=== PATIENT | female | born 2000 | race Caucasian/White ===

== ENCOUNTER 2023-02-17 05:55 | Emergency (ER) | payer BC ==
[~2023-02-17] VITALS: Ht 170.2 cm; Wt 104.3 kg
[2023-02-17 06:08] VITALS: BP_SYST 116
[2023-02-17] MEDS ORDERED: ONDANSETRON 4 MG ODT TAB PO ONE (06:30)
[2023-02-17] MEDS ORDERED: ONDANSETRON 4 MG ODT TAB ONE (06:32)
[2023-02-17] MEDS ORDERED: ONDA-8 TL (06:37)
[2023-02-17 07:06] VITALS: BP_SYST 128
== END 2023-02-17 07:07 | disposition home or self-care (01) ==
LOC: SED 05:55
DX: A05.9 Bacterial foodborne intoxication, unspecified (principal); R11.10 Vomiting, unspecified; R19.7 Diarrhea, unspecified; R10.84 Generalized abdominal pain; Z79.899 Other long term (current) drug therapy
CPT/HCPCS: 99283; Q0162

== ENCOUNTER 2023-04-28 22:16 | Emergency (ER) | payer BC ==
[~2023-04-28] VITALS: Ht 170.2 cm; Wt 99.8 kg
[~2023-04-28 22:16] MED LIST: ONDA-8 TL
[2023-04-28 22:23] VITALS: BP_SYST 148
--- NOTE | 2023-04-28 22:27 | NUR ---
ER Dr. Dumont at bedside examining patient.
[2023-04-28] MEDS ORDERED: DEXAMETHASONE SOD PHOSPHATE 10 MG/ML VIAL PO ONE (22:30)
[2023-04-28] MEDS ORDERED: IBUPROFEN 600 MG TABLET PO ONE (22:30)
--- NOTE | 2023-04-28 22:30 | NUR ---
Patient to ER bed 07 to gown for evaluation. Side rails up. Report given to DARVIN MCKEON.
--- NOTE | 2023-04-28 22:35 | NUR ---
Pt bib self from home, ambulated from to bed 8. Pt c/o fever x2 days, congestion beginning today. Pt states she is having difficulty swallowing. Pt rates throat pain 7/10. Pt c/o of dry cough and vomited yesterday. Pt denies diarrhea. Pt denies taking COVID home test. Pt states she took dayquil around 2100. Safety precautions in place.
[2023-04-29 00:07] LABS: STREPTOCOCCUS A SCREEN (RAPID) NEGATIVE (NEGATIVE)
[2023-04-29] MEDS ORDERED: GUAI-723 PO (00:26)
[2023-04-29] MEDS ORDERED: BENZ1LOZ73 PO (00:26)
[2023-04-29 00:43] VITALS: BP_SYST 105
--- NOTE | 2023-04-29 00:44 | NUR ---
Patient given written and verbal discharge instructions and verbalizes understanding. ER Dr Dumont discussed with patient the results and treatment provided. Patient in stable condition. ID arm band removed. Rx of Cepacol Sore Throat Lozenge, Mucinex given. Patient educated on pain management and to follow up with PMD. Pain Scale 2/10. Opportunity for questions provided and answered. Medication side effect fact sheet provided.
== END 2023-04-29 00:42 | disposition home or self-care (01) ==
LOC: SED 22:16
DX: B34.9 Viral infection, unspecified (principal); J02.9 Acute pharyngitis, unspecified; R05.9 Cough, unspecified; R09.81 Nasal congestion; J45.909 Unspecified asthma, uncomplicated; Z91.013 Allergy to seafood; Z79.899 Other long term (current) drug therapy; Z20.822 Contact with and (suspected) exposure to COVID-19
CPT/HCPCS: 99283; 87426; 86403; 36415; 87081; 87804 ×2; J1100

== ENCOUNTER 2023-05-07 04:05 | Emergency (ER) | payer BC ==
[~2023-05-07] VITALS: Ht 170.2 cm; Wt 103.9 kg
[~2023-05-07 04:05] MED LIST changes: +BENZ1LOZ73 PO; +GUAI-723 PO
[2023-05-07 04:08] VITALS: BP_SYST 121
[2023-05-07] MEDS ORDERED: MORPHINE 4 MG INJ. 4 MG/ML VIAL IVP ONE (04:30)
[2023-05-07] MEDS ORDERED: ONDANSETRON HCL 4 MG/2 ML VIAL IVP ONE (04:30)
[2023-05-07] MEDS ORDERED: NACL 0.9% 1,000 ML IV ONE (04:30)
[2023-05-07 04:58] LABS: BASOPHILS # (AUTO) 0.1 K/uL (0.0-0.2); BASOPHILS % (AUTO) 0.4 % (0.0-2.0); EOSINOPHILS # (AUTO) 0.3 K/uL (0.0-0.4); EOSINOPHILS % (AUTO) 2.1 % (0.0-4.0); HEMATOCRIT 37.8 % (36-48); HEMOGLOBIN 12.4 g/dL (12.0-16.0); LYMPHOCYTES # (AUTO) 3.4 K/uL (1.0-5.5); LYMPHOCYTES % (AUTO) 22.9 % (20.5-51.5); MEAN CORPUSCULAR HEMOGLOBIN 28 pg (27-31); MEAN CORPUSCULAR HGB CONC 33 % (32-36); MEAN CORPUSCULAR VOLUME 86 fL (79.0-98.0); MONOCYTES # (AUTO) 0.9 K/uL (0.0-1.0); MONOCYTES % (AUTO) 6.4 % (1.7-9.3); NEUTROPHILS % (AUTO) 68.2 % (40.0-70.0); PLATELET COUNT (AUTO) 395 K/uL (130-430); RED BLOOD CELL COUNT(AUTO) 4.42 MIL/uL (4.2-6.2); RED CELL DISTRIBUTION WIDTH 13.5 % (9.0-15.0); WHITE BLOOD COUNT (AUTO) 14.6 K/uL (4.8-10.8)
[2023-05-07 05:51] LABS: CALCIUM 8.6 mg/dL (8.4-11.0); CREATININE 0.86 mg/dL (0.55-1.30)
[2023-05-07 05:56] LABS: ALBUMIN 3.3 g/dL (3.4-4.8); TOTAL BILIRUBIN 0.2 mg/dL (0.0-1.0)
[2023-05-07 06:13] LABS: BILIRUBIN,URINE NEGATIVE (NEGATIVE); BLOOD, URINE 2+ (NEGATIVE); CLARITY/URINE CLOUDY (CLEAR); COLOR,URINE YELLOW (YELLOW); GLUCOSE,URINE NEGATIVE (NEGATIVE); KETONES,URINE NEGATIVE (NEGATIVE); LEUKOCYTE ESTERASE ,URINE 2+ (NEGATIVE); NITRITE, URINE NEGATIVE (NEGATIVE); PROTEIN URINE 1+ (NEGATIVE); UROBILINOGEN,URINE 0.2 (0.2-1.0)
[2023-05-07] MEDS ORDERED: KETOROLAC TROMETHAMINE 30 MG VIAL IVP ONE (06:15)
[2023-05-07 06:40] LABS: BACTERIA,URINE FEW /HPF (None Seen); WBC,URINE 80-100 /HPF (0-3)
[2023-05-07] MEDS ORDERED: CEPH-548 PO (12:09)
[2023-05-07 12:24] VITALS: BP_SYST 117
== END 2023-05-07 12:25 | disposition home or self-care (01) ==
LOC: SED 04:05
DX: N83.201 Unspecified ovarian cyst, right side (principal); N39.0 Urinary tract infection, site not specified; R10.11 Right upper quadrant pain; R11.0 Nausea; J45.909 Unspecified asthma, uncomplicated; Z91.013 Allergy to seafood; Z79.899 Other long term (current) drug therapy
CPT/HCPCS: 99285; 74177; 96374; 76705; 96375; 96361; 80053; 81000; 83690; 85025; 87086; 36415; 76376; 81025; J1885; J2405; J2270; Q9967; J7030

== ENCOUNTER 2023-06-21 08:28 | Emergency (ER) | payer BC ==
[~2023-06-21] VITALS: Ht 170.2 cm; Wt 106.6 kg
[2023-06-21 08:28] VITALS: BP_SYST 138; PULSE 92; RESP 17; TEMP 98; O2SAT 98
[~2023-06-21 08:28] MED LIST changes: +CEPH-548 PO
[2023-06-21] MEDS ORDERED: EPINEPHRINE HCL/PF 1 MG/ML AMP IM ONE (09:15)
--- NOTE | 2023-06-21 09:30 | NUR ---
Patient to ER bed 7 for evaluation. Side rails up. Report given to WALDO Amezcua.
--- NOTE | 2023-06-21 09:40 | NUR ---
Patient evaluated by Dr. Mcbride. ordered patient to be given test. Patient gave urine and test done. Test is negative so med prescribed given.
--- NOTE | 2023-06-21 09:59 | NUR ---
Patient stated she is feeling more relaxed at this time.
[2023-06-21] MEDS ORDERED: PRED20TA PO (10:30)
--- NOTE | 2023-06-21 11:00 | NUR ---
Patient given written and verbal discharge instructions and verbalizes understanding. ER MD discussed with patient the results and treatment provided. Patient in stable condition. ID arm band removed. Rx of prednisone given. Patient educated on pain management and to follow up with PMD. Pain Scale 0/10. Opportunity for questions provided and answered. Medication side effect fact sheet provided.
[2023-06-21 12:12] VITALS: BP_SYST 129; PULSE 86; RESP 20; O2SAT 97
== END 2023-06-21 11:00 | disposition home or self-care (01) ==
LOC: SED 08:28
DX: L50.9 Urticaria, unspecified (principal); R21 Rash and other nonspecific skin eruption; J45.909 Unspecified asthma, uncomplicated; Z91.013 Allergy to seafood; Z79.899 Other long term (current) drug therapy
CPT/HCPCS: 99283; 81025; 96372; J0171

== ENCOUNTER 2023-07-26 18:46 | Emergency (ER) | payer BC ==
[~2023-07-26] VITALS: Ht 170.2 cm; Wt 104.3 kg
[~2023-07-26 18:46] MED LIST changes: +PRED20TA PO
[2023-07-26 19:35] VITALS: BP_SYST 115; PULSE 86; RESP 17; TEMP 98.8; O2SAT 99
[2023-07-26 19:35] LABS: BASOPHILS % (AUTO) 0.3 % (0.0-2.0); EOSINOPHILS # (AUTO) 0.4 K/uL (0.0-0.4); EOSINOPHILS % (AUTO) 2.5 % (0.0-4.0); HEMATOCRIT 36.4 % (36-48); HEMOGLOBIN 11.8 g/dL (12.0-16.0); LYMPHOCYTES # (AUTO) 3.4 K/uL (1.0-5.5); LYMPHOCYTES % (AUTO) 23.7 % (20.5-51.5); MEAN CORPUSCULAR HEMOGLOBIN 28 pg (27-31); MEAN CORPUSCULAR HGB CONC 32 % (32-36); MEAN CORPUSCULAR VOLUME 86 fL (79.0-98.0); MONOCYTES # (AUTO) 0.9 K/uL (0.0-1.0); MONOCYTES % (AUTO) 6.5 % (1.7-9.3); NEUTROPHILS # (AUTO) 9.7 K/uL (1.8-7.7); PLATELET COUNT (AUTO) 364 K/uL (130-430); RED BLOOD CELL COUNT(AUTO) 4.22 MIL/uL (4.2-6.2); RED CELL DISTRIBUTION WIDTH 13.7 % (9.0-15.0); WHITE BLOOD COUNT (AUTO) 14.5 K/uL (4.8-10.8)
[2023-07-26 23:31] VITALS: BP_SYST 122; PULSE 88; RESP 18; TEMP 98.3; O2SAT 98
== END 2023-07-26 23:25 | disposition home or self-care (01) ==
LOC: SED 18:46
DX: O00.01 Abdominal pregnancy with intrauterine pregnancy (principal); Z3A.10 10 weeks gestation of pregnancy; J45.909 Unspecified asthma, uncomplicated; Z91.013 Allergy to seafood; Z79.899 Other long term (current) drug therapy
CPT/HCPCS: 36415; 76856-TC; 84702; 85025; 86900; 86901; 99284